=== PATIENT | female | born 1970 ===

== ENCOUNTER 2018-02-10 08:05 | Outpatient (CLI) | payer OTHER ==
--- NOTE | 2018-02-10 11:10 | MMO ---
BILATERAL MAMMOGRAMS: DATE: 02/10/18 HISTORY: Screening mammography. COMPARISON: None. Baseline exam. FINDINGS: Scattered fibroglandular densities are present. No dominant mass or suspicious calcifications. The study was evaluated with the assistance of computer-aided detection. IMPRESSION: BIRADS 1: Negative Suggest routine follow-up. POS: [facility]
== END 2018-02-10 08:06 | disposition home or self-care (01) ==
LOC: SCSMAMMO 08:05
PROVIDERS: ATTEND Family Medicine
DX: Z12.31 Encounter for screening mammogram for malignant neoplasm of breast (principal)
CPT/HCPCS: 77067